=== PATIENT | male | born 1975 | race Caucasian/White ===

== ENCOUNTER 2017-02-26 17:51 | Emergency (ER) | payer SELFPAY ==
[~2017-02-26] VITALS: Ht 190.5 cm; Wt 104.3 kg
[2017-02-26 17:54] VITALS: BP 128/68
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
[2017-02-26] MEDS ORDERED: TYLENOL EXTRA500 MG ORAL (19:40)
[2017-02-26 20:00] VITALS: BP 136/75
== END 2017-02-26 20:00 | disposition home or self-care (01) ==
LOC: EDBD 17:51 → EMR 19:12
DX: M54.40 Lumbago with sciatica, unspecified side (principal); G89.29 Other chronic pain
CPT/HCPCS: 99283